=== PATIENT | female | born 1980 | race Caucasian/White ===

== ENCOUNTER 2022-11-11 17:03 | Emergency (ER) | payer BC, SELFPAY ==
[2022-11-11] VITALS (13 sets, daily range): BP systolic 106–130; BP diastolic 58–73; PULSE 74–90; RESP 14–22; TEMP 36.7; O2SAT 96–100
--- NOTE | ~2022-11-11 | CT_ITS ---
EXAMINATION: CT BRAIN W/O DATE: 11/11/2022 17:42 INDICATION: New onset of seizures. TECHNIQUE: Computed tomography (CT) of the head was performed without intravenous contrast. The dose- length product was 605.33 mGy-cm. Automated exposure control and iterative reconstruction technique w ere employed. COMPARISON: No prior studies for comparison. FINDINGS: Normal brain parenchymal volume for age. Normal jose-white differentiation. No acute intrac ranial hemorrhage, infarction, mass or mass effect. No ventriculomegaly or midline shift. Midline sagittal images demonstrate a normal corpus callosum, c raniovertebral junction and sella turcica. Basilar cisterns are patent. Paranasal sinuses and mastoids are pneumatized. No depressed skull fractures. IMPRESSION: 1. No acute intracranial abnormality. Reviewed, dictated and finalized at location A.
--- NOTE | ~2022-11-11 | XR_ITS ---
EXAMINATION: XR chest 1V 11/11/2022 17:44 INDICATION: Shortness of breath PROCEDURE: AP view of the chest COMPARISON: No prior studies for comparison. FINDINGS: The lungs are clear. The cardiomediastinal silhouette is within normal limits. There are no pleural effusions. There is no pneumothorax suspected. IMPRESSION: 1: NO ACUTE CARDIOPULMONARY DISEASE. Reviewed, dictated and finalized at location A.
--- NOTE | 2022-11-11 17:19 | ECG_ITS ---
Measurements Intervals [place] Rate: 84 P: 61 FL: 132 QRS: 69 QRSD: 90 T: 32 QT: 390 QTc: 463 Interpretive Statements SINUS RHYTHM NONSPECIFIC ST AND T-WAVE ABNORMALITY NO PREVIOUS ECG AVAILABLE FOR COMPARISON Electronically Signed On 11-11-2022 18:40:48 CDT by Michelle Conti M.D.
--- NOTE | 2022-11-11 17:25 | PC.NURSE ---
Pt is brought to ER by local EMS c/o convulsions. Pt denies any history of seizures. States they started this morning but not sure what she was doing when they started. States they last a few seconds and does not lose consciousness. Pt denies any recent head trauma or injury. 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 Denies any drug use. Pt has no neuro deficits at this time.
--- NOTE | 2022-11-11 17:26 | ED.SEIZURE ---
HPI - Seizure General Chief Complaint: Seizure Stated Complaint: Involuntary convulsions since this AM q5 min Time Seen by Provider: 11/11/22 17:18 History of Present Illness HPI Narrative: Patient is a 42-year-old healthy female here for evaluation of involuntary convulsions starting today. Patient states that every 5 minutes or so she will have spasms of the right side of her face in addition to involuntary vocalization and twitching of her right upper extremity. The episodes last for about 3 seconds before resolving. She does not lose consciousness during the episodes. Denies history of seizures/tourettes. While the episodes are there she reports some shortness of breath but none while she is at rest. She has had no chest pain, fevers, headaches, visual changes, neck stiffness, weakness in her limbs. She was in her usual state of health yesterday. She denies any drug or alcohol use. She has been under a lot of stress lately. Denies chance of , not sexually active. Related Data Allergies Allergy/AdvReac Type Severity Reaction Status Date / Time No Known Allergies Allergy Verified 11/11/22 17:15 Review of Systems Review of Systems: Gen: Denies fevers or chills Eyes: Denies eye pain or visual change ENT: Denies congestion Respiratory: Denies shortness of breath or cough CV: Denies chest pain or palpitations GI: Denies abdominal pain nausea, emesis or diarrhea denies burning, urgency, frequency or hematuria Musculoskeletal: Denies back pain or muscle pain Neuro: Reports involuntary twitching. Denies numbness, tingling, weakness or focal weakness Skin: Denies rash Except as documented, all other systems reviewed and negative Exam Narrative: APPEARANCE: Anxious appearing, alert, oriented, no acute distress. Head: Normocephalic and atraumatic. EYES: Pupils are 3 mm and equal, reactive to light. there are several beats of fatiguable, horizontal nystagmus with EOMs, no vertical nystagmus NOSE: No nasal drainage EARS: External ear normal in appearance THROAT: Oropharynx is clear. Mucous membranes are moist. NECK: No nuchal rigidity. RESPIRATORY: Airway patent, respirations nonlabored. Clear to auscultation bilaterally, no rales, rhonchi, wheezing. CARDIOVASCULAR: Regular rate and rhythm without murmurs, rubs, or gallops. ABDOMINAL: Normoactive bowel sounds. Soft, nontender, nondistended. No rebound tenderness or guarding. MUSCULOSKELETAL: Extremities are warm and well-perfused. Moves all extremities well. No edema. NEURO: Every 2 to 3 minutes patient has several seconds of involuntary facial twitching and vocal spasms mostly involving the right side of her face. Cranial nerves II through XII intact. There is tremulousness of the bilateral upper extremities with purposeful movement. There is no tremors of the lower extremities. 5 out of 5 strength in bilateral upper and lower extremities. SKIN: Skin is warm and dry. No rashes. PSYCHIATRIC: Normal affect/mood. Course Vital Signs Vital signs: Vital Signs Temperature 98.1 F 11/11/22 17:10 Pulse Rate 88 11/11/22 17:10 Respiratory Rate 16 11/11/22 17:10 Blood Pressure 130/73 11/11/22 17:10 Pulse Oximetry 99 11/11/22 17:10 Oxygen Delivery Room Air 11/11/22 17:10 Temperature 98.0 F 11/11/22 19:15 Pulse Rate 79 11/11/22 21:02 Respiratory Rate 20 11/11/22 21:02 Blood Pressure 112/68 11/11/22 21:02 Pulse Oximetry 100 11/11/22 21:02 Oxygen Delivery Room Air 11/11/22 17:10 MDM - Seizure MDM Narrative Medical decision making narrative: 42-year-old female here for evaluation of involuntary convulsions today involving the right side of her face and upper extremity. Patient does not lose consciousness during these episodes, had several witnessed events that appear consistent with simple partial seizures. She is nontoxic in appearance, has normal vital signs, no deficits on exam. She was given Ativan in the ED with complete re
[2022-11-11] MEDS: LORazepam INJ (*CRX) 2 MG/ML VIAL IV PUSH (17:46)
[2022-11-11 18:26] LABS: Basophils Absolute Auto 0.1 K/mm3 (0.0-0.1); Basophils Percent Auto 1.5 % (0.2-1.2); Eosinophils Absolute Auto 0.2 K/mm3 (0-0.3); Hematocrit 38.4 % (37.0-47.0); Immature Granulocyte Absolute 0.01 K/mm3 (0.00-0.031); Immature Granulocyte Percent A 0.2 % (0-0.5); Lymphocytes Absolute Auto 1.72 K/mm3 (0.9-3.2); Lymphocytes Percent Auto 28.2 % (18.3-44.2); Mean Corpuscular HGB Conc 33.9 g/dl (32-36); Mean Corpuscular Hemoglobin 29.1 pg (26-34); Mean Corpuscular Volume 85.9 fl (80-100); Mean Platelet Volume 10.7 fl (7.4-10.4); Monocytes Absolute Auto 0.5 K/mm3 (0.1-0.6); Monocytes Percent Auto 8.5 % (2.6-8.5); Neutrophils Absolute Auto 3.6 K/mm3 (1.3-6.7); Neutrophils Percent Auto 58.6 % (45.5-73.1); Platelet Count Result 300 k/mm3 (150-375); Red Blood Count 4.47 M/mm3 (4.2-5.4); Red Cell Distribution Width 12.5 % (11.5-14.5); White Blood Count 6.1 K/mm3 (4.5-10.0)
[2022-11-11 18:30] LABS: Lactic Acid Reflex 0.8 mmol/L (0.7-2.0)
[2022-11-11 18:32] LABS: Ethanol < 10 mg/dL (<10)
[2022-11-11 18:54] LABS: Alanine Aminotransferase 21 U/L (6-35); Albumin Level 4.2 g/dL (3.5-5.1); Alkaline Phosphatase 65 U/L (38-126); Anion Gap 10 mmol/L (8-16); Aspartate Amino Transferase 26 U/L (14-36); Bilirubin,Total 0.8 mg/dL (0.2-1.3); Blood Urea Nitrogen 11 mg/dL (7-17); Calcium 8.6 mg/dL (8.4-10.2); Carbon Dioxide 22 mmol/L (22-30); Chloride 106 mmol/L (98-107); Estimated CRCL calculation 123 ml/min; Estimated Glomerular Filt Rate > 60; Glucose 82 mg/dL (65-110); Magnesium 1.8 mg/dL (1.6-2.3); Potassium 3.1 mmol/L (3.4-5.0); Sodium 138 mmol/L (137-145)
[2022-11-11 19:29] LABS: Appearance Urine Cloudy (Clear); Bacteria Urine 1+ /hpf; Bilirubin Urine 2+ (Negative); Blood Urine 3+ (Negative); Calcium Oxalate Crystals Urine Present /hpf; Color Urine Dark Yellow (Yellow); Glucose Urine UA Negative (Negative); Ketones Urine 2+ mg/dL (Negative); Leukocyte Esterase Ur 2+ LEU/UL (Negative); Mucus Urine Present /lpf; Need Manual Microscopic Reviewed; Nitrate Urine Negative (Negative); Protein Urine 1+ mg/dL (Negative); RBC Urine 21-50 /hpf (0-2); Squamous Epithelial Cell Urine Few /hpf (Few); WBC Urine >100 /hpf; pH Urine 5.5 (5.0-9.0)
[2022-11-11 19:32] LABS: Specific Grav Ur 1.037 (1.001-1.035)
[2022-11-11 19:33] LABS: Add Urine Microscopic? YES
[2022-11-11 20:12] LABS: Barbiturate Screen Urine Negative (Negative); Benzodiazepines Screen Urine Negative (Negative)
[2022-11-11 20:24] LABS: Amphetamine Screen Urine Negative (Negative); Cannabinoid Screen Urine Negative (Negative); Cocaine Screen Urine Negative (Negative); Methadone Screen Urine Negative (Negative); Opiate Screen Urine Negative (Negative); Phencyclidine Screen Urine Negative (Negative)
[2022-11-11] MEDS: POTASSIUM CHLORIDE 20 MEQ PACKET (FOR LIQUID) 40 MEQ PO (20:59)
[2022-11-11] MEDS: levETIRAcetam IV 4,500 MG in DEXTROSE 5% 100 ML 870 MG IVPB (21:00)
--- NOTE | 2022-11-11 21:11 | PC.NURSE ---
Called pt. family member per pt. request. Family is on the way.
== END 2022-11-11 21:25 | disposition home or self-care (01) ==
PROVIDERS: Emergency Provider Physician Assistant
DX: G40.89 Other seizures (principal); R94.31 Abnormal electrocardiogram [ECG] [EKG]
CPT/HCPCS: 36415; 70450; 71045; 80053; 80307; 81001; 81025; 83605; 83735; 85025; 87077; 87086; 87088; 93005; 96365; 96375; 99284; A9270; J1953; J2060